=== PATIENT | male | born 2000 | race Hispanic/Latino ===

== ENCOUNTER 2018-12-09 07:57 | Emergency (ER) | payer SELFPAY ==
[2018-12-09 08:42] LABS: Basophils % (Auto) 0.5 % (0.0-1.8); Eosinophils % (Auto) 0.1 % (0.0-4.3); Hematocrit 53.5 % (35.5-45.6); Hemoglobin 18.2 gm/dl (11.8-15.2); Lymphocytes # (Auto) 1.6 K/mm3 (1.2-5.4); Lymphocytes % (Auto) 20.6 % (13.4-35.0); Mean Corpuscular HGB Conc 34 % (32-34); Mean Corpuscular Volume 96 fl (84-94); Monocytes # (Auto) 0.5 K/mm3 (0.0-0.8); Monocytes % (Auto) 6.6 % (0.0-7.3); Platelet Count 190 K/mm3 (140-440); Red Blood Count 5.55 M/mm3 (3.65-5.03); Red Cell Distribution Width 14.2 % (13.2-15.2)
[2018-12-09 08:43] VITALS: BP 126/76
[2018-12-09 08:53] LABS: BUN/Creatinine Ratio 10; Blood Urea Nitrogen 9 mg/dL (9-20); Calcium 9.4 mg/dL (8.4-10.2); Hemolysis Index 9
[2018-12-09 09:21] LABS: Bilirubin,Urine NEG (Negative); Blood,Urine SM (Negative); Color,Urine Yellow (Yellow); Mucus,Urine FEW /HPF; RBC,Urine < 1.0 /HPF (0.0-6.0)
[2018-12-09 09:34] LABS: Amphetamine Screen,Urine PRESUMPTIVE NEGATIVE; Benzodiazepines Screen,Urine PRESUMPTIVE NEGATIVE; Cannabinoid Screen,Urine PRESUMPTIVE NEGATIVE; Cocaine Screen,Urine PRESUMPTIVE NEGATIVE; Methadone Screen,Urine PRESUMPTIVE NEGATIVE; Opiate Screen,Urine PRESUMPTIVE NEGATIVE
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
[2018-12-09] MEDS ORDERED: BOOSTRIX IM ONE (10:25)
[2018-12-09] MEDS ORDERED: IBUPROFEN PO ONE (10:25)
[2018-12-09] MEDS ORDERED: ANCEF IM ONE (10:25)
[2018-12-09] MEDS ORDERED: NACL 0.9% 500 ML IR ONE ×2 (10:29→11:09)
[2018-12-09] MEDS ORDERED: NACL 0.9% 500 ML 500 ML ONE (10:39)
[2018-12-09] MEDS ORDERED: TRIPLE ANTIBIOTIC TP ONE (11:30)
[2018-12-09] MEDS ORDERED: WATER FOR INJ (PF) ONE (11:33)
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
== END 2018-12-09 12:08 | disposition home or self-care (01) ==
LOC: ED 07:57
DX: S61.212A Laceration without foreign body of right middle finger without damage to nail, initial encounter (principal); S61.214A Laceration without foreign body of right ring finger without damage to nail, initial encounter; F17.200 Nicotine dependence, unspecified, uncomplicated; Z88.1 Allergy status to other antibiotic agents; W25.XXXA Contact with sharp glass, initial encounter; Y93.89 Activity, other specified; Y92.89 Other specified places as the place of occurrence of the external cause; Y99.8 Other external cause status
CPT/HCPCS: 36415; 73130; 80048; 80307; 81001; 85025; 90471; 90715; 96372; 99284; G0480; J0690; J7040; 80320; A6250